=== PATIENT | male | born 1935 | race Caucasian/White ===

== ENCOUNTER 2017-01-31 18:21 | Inpatient (IN) | payer OTHER, MEDICARE ==
[~2017-01-31] VITALS: Ht 167.6 cm; Wt 96.0 kg
[~2017-01-31 18:21] MED LIST: DOCU1CAP39 PO; FURO1TAB93 PO; KCL20 PO; LEVA750T PO; LOSA25TA31 PO; METF-324 PO; OXYC5 PO; PRAV10 PO; PRED10PA PO; Z.0.OXYGEN INH
[2017-01-31 18:28] VITALS: BP 155/72; PULSE 75; RESP 20; O2SAT 80
[2017-01-31] MEDS ORDERED: FUROSEMIDE 40 MG/4 ML VIAL IV PUSH ONE (19:15)
--- NOTE | 2017-01-31 19:15 | RADRPT ---
EXAM DATE/TIME: 01/31/2017 19:08 [facility] COMPARISON: No previous studies available for comparison. INDICATIONS : Short of breath. MEDICAL HISTORY : Chronic obstructive pulmonary disease. Hypertension SURGICAL HISTORY : None. ENCOUNTER: Initial ACUITY: >1 year PAIN SCORE: 0/10 LOCATION: Bilateral chest FINDINGS: Mild consolidation seen in both lung bases. There is a small pleural effusion on the left. No pneumot horax seen. Heart size stable, upper limits of normal. CONCLUSION: Bibasilar consolidation and a small left pleural effusion. Raymon Meraz MD on January 31, 2017 at 19:13 Board Certified Radiologist. This report was verified electronically.
--- NOTE | 2017-01-31 19:16 | PD ---
HPI Chief Complaint: Respiratory Distress Time Seen by Provider: 19:16 Travel History International Travel<30 days: No Contact w/Intl Traveler<30days: No Traveled to known affect area: No History of Present Illness HPI 81 year old male with history of CHF, HTN, COPD, Diabetes presents to the ED for evaluation of worsening shortness of breath. Pt states this has been evolving over the last 3-4 days, but this morning when he woke up, his oxygen saturation was 50%. He is on 3LNC at home. He states he did not come into the ED at that time because he felt his oxygen would "catch up." He states he has been able to do nothing today without significant shortness of breath. EVAC reports O2 of 80% when they arrived at his house. Pt reports no recent illness, fever, or chills. Intermittent pain across his chest, but no pain currently. Denies any nausea or vomiting. No other symptoms to report at this time. 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 ) Substance Use: No Allergies-Medications (Allergen,Severity, Reaction): Coded Allergies: No Known Allergies (Verified , 01/21/15) Reported Meds & Prescriptions Reported Meds & Active Scripts Active Reported Hydrochlorothiazide 12.5 Mg Tab 12.5 Mg PO DAILY Duoneb (Ipratropium-Albuterol Neb) 0.5-2.5 Mg/3 Ml Neb 1 Nebule INH Q8HR NEB PRN Docusate Sodium 100 Mg Cap 100 Mg PO BID Symbicort Inh (Budesonide/Formoterol Fumarate) 160-4.5 Mcg/Act Aero 2 Puff INH Q12HR Terazosin (Terazosin HCl) 10 Mg Cap 10 Mg PO DAILY Aspirin EC (Aspirin) 81 Mg Tabdr 81 Mg PO DAILY Metformin (Metformin HCl) 500 Mg Tab 500 Mg PO BIDPC With meals Atorvastatin (Atorvastatin Calcium) 10 Mg Tab 10 Mg PO DAILY Review of Systems Except as stated in HPI: all other systems reviewed are Neg Physical Exam Narrative GENERAL: Well-nourished elderly male patient, sitting up in bed, in mild distress, SKIN: Focused skin assessment warm/dry. HEAD: Atraumatic. Normocephalic. EYES: Pupils equal and round. No scleral icterus. No injection or drainage. ENT: No nasal bleeding or discharge. Mucous membranes pink and moist. NECK: Trachea midline. No JVD. CARDIOVASCULAR: Regular rate and rhythm. No murmur appreciated. RESPIRATORY: Mild accessory muscle use. Diminished to auscultation. Breath sounds equal bilaterally. GASTROINTESTINAL: Abdomen rotund, soft, normal active bowel sounds hepatic and splenic margins not palpable. MUSCULOSKELETAL: No obvious deformities. No clubbing. No cyanosis. 2+ bilateral lower extremity edema. NEUROLOGICAL: Awake and alert. No obvious cranial nerve deficits. Motor grossly within normal limits. Normal speech. PSYCHIATRIC: Appropriate mood and affect; insight and judgment normal. Data Data Last Documented VS Vital Signs Date Time Temp Pulse Resp B/P Pulse Ox O2 Delivery O2 Flow Rate FiO2 01/31/17 19:09 100 Non-Rebreather 15 01/31/17 18:28 75 20 155/72 Orders Complete Blood Count With Diff (01/31/17 18:52) Basic Metabolic Panel (Bmp) (01/31/17 18:52) B-Type Natriuretic Peptide (01/31/17 18:52) Act Partial Throm Time (Ptt) (01/31/17 18:52) Prothrombin Time / Inr (Pt) (01/31/17 18:52) Ckmb (Isoenzyme) Profile (01/31/17 18:52) Troponin I (01/31/17 18:52) Urinalysis - C+S If Indicated (01/31/17 18:52) Influenzae A/B Antigen (01/31/17 18:52) Iv Access Insert/Monitor (01/31/17 18:52) Electrocardiogram (01/31/17 18:52) Ecg Monitoring (01/31/17 18:52) Oximetry (01/31/17 18:52) Oxygen Administration (01/31/17 18:52) Chest, Single Ap (01/31/17 18:52) Sodium Chloride 0.9% Flush (Ns Flush) (01/31/17 19:00) Albuterol-Ipratropium Neb (Duoneb Neb) (01/31/17 19:00) Furosemide Inj (Lasix Inj) (01/31/17 19:15) Vancomycin Inj (Vancomycin Inj) (01/31/17 20:45) Azithromycin Inj (Zithromax Inj) (01/31/17 20:45) Blood Culture (01/31/17 20:38) Arterial Blood Gas (Abg) (01/31/17 ) Admit Order (Ed Use Only) (01/31/17 21:04) Labs Laboratory Tests Test 01/31/17 01/31/17 19:10 20:20 White Blood Count 6.9 TH/MM3 Red Blood Count 3.28 MIL/MM3 Hemoglobin 10.0 GM/DL Hematocrit 31.3 % Mean Corpuscular Volume 95.4 FL Mean Corpuscular Hemoglobin 30.6 PG Mean Corpuscular Hemoglobin 32.0 % Concent Red Cell Distribution Width 15.9 % Platelet Count 166 TH/MM3 Mean Platelet Volume 8.3 FL Neutrophils (%) (Auto) 64.9 % Lymphocytes (%) (Auto) 18.2 % Monocytes (%) (Auto) 12.7 % Eosinophils (%) (Auto) 3.5 % Basophils (%) (Auto) 0.7 % Neutrophils # (Auto) 4.5 TH/MM3 Lymphocytes # (Auto) 1.2 TH/MM3 Monocytes # (Auto) 0.9 TH/MM3 Eosinophils # (Auto) 0.2 TH/MM3 Basophils # (Auto) 0.0 TH/MM3 CBC Comment DIFF FINAL Differential Comment Prothrombin Time 11.5 SEC Prothromb Time International 1.0 RATIO Ratio Activated Partial 27.5 SEC Thromboplast Time Sodium Level 142 MEQ/L Potassium Level 4.4 MEQ/L Chloride Level 97 MEQ/L Carbon Dioxide Level 43.8 MEQ/L Anion Gap 1 MEQ/L Blood Urea Nitrogen 17 MG/DL Creatinine 0.74 MG/DL Estimat Glomerular Filtration 102 ML/MIN Rate Random Glucose 121 MG/DL Calcium Level 8.4 MG/DL Total Creatine Kinase 59 U/L Troponin I LESS THAN 0.02 NG/ML B-Type Natriuretic Peptide 165 PG/ML Urine Color LIGHT-YELLOW Urine Turbidity CLEAR Urine pH 5.0 Urine Specific [place] 1.008 Urine Protein NEG mg/dL Urine Glucose (UA) NEG mg/dL Urine Ketones NEG mg/dL Urine Occult Blood NEG Urine Nitrite NEG Urine Bilirubin NEG Urine Urobilinogen LESS THAN 2.0 MG/DL Urine Leukocyte Esterase NEG Urine RBC LESS THAN 1 /hpf Urine WBC LESS THAN 1 /hpf Urine Squamous Epithelial <1 /hpf Cells Urine Bacteria RARE /hpf Urine Mucus FEW /lpf Microscopic Urinalysis Comment CULT NOT INDICATED MDM Medical Decision Making Medical Screen Exam Complete: Yes Emergency Medical Condition: Yes Medical Record Reviewed: Yes Differential Diagnosis COPD exacerbation v pneumonia v chf v acs v PE Narrative Course 81-year-old male presents to emergency department for evaluation of hypoxia, shortness of breath. Patient has history of COPD and CHF. Pt appears in mild distress. Patient is 79% here on 4 L nasal cannula. He is placed on 100% nonrebreather and oxygen saturation increases to 94%. He has 2+ BLE edema. I discussed the pt with my attending physician Dr. Kennedy. He has reviewed the xr prior to read and recommends lasix. Laboratory Tests Test 01/31/17 01/31/17 19:10 20:20 White Blood Count 6.9 TH/MM3 Red Blood Count 3.28 MIL/MM3 Hemoglobin 10.0 GM/DL Hematocrit 31.3 % Mean Corpuscular Volume 95.4 FL Mean Corpuscular Hemoglobin 30.6 PG Mean Corpuscular Hemoglobin 32.0 % Concent Red Cell Distribution Width 15.9 % Platelet Count 166 TH/MM3 Mean Platelet Volume 8.3 FL Neutrophils (%) (Auto) 64.9 % Lymphocytes (%) (Auto) 18.2 % Monocytes (%) (Auto) 12.7 % Eosinophils (%) (Auto) 3.5 % Basophils (%) (Auto) 0.7 % Neutrophils # (Auto) 4.5 TH/MM3 Lymphocytes # (Auto) 1.2 TH/MM3 Monocytes # (Auto) 0.9 TH/MM3 Eosinophils # (Auto) 0.2 TH/MM3 Basophils # (Auto) 0.0 TH/MM3 CBC Comment DIFF FINAL Differential Comment Prothrombin Time 11.5 SEC Prothromb Time International 1.0 RATIO Ratio Activated Partial 27.5 SEC Thromboplast Time Sodium Level 142 MEQ/L Potassium Level 4.4 MEQ/L Chloride Level 97 MEQ/L Carbon Dioxide Level 43.8 MEQ/L Anion Gap 1 MEQ/L Blood Urea Nitrogen 17 MG/DL Creatinine 0.74 MG/DL Estimat Glomerular Filtration 102 ML/MIN Rate Random Glucose 121 MG/DL Calcium Level 8.4 MG/DL Total Creatine Kinase 59 U/L Troponin I LESS THAN 0.02 NG/ML B-Type Natriuretic Peptide 165 PG/ML Urine Color LIGHT-YELLOW Urine Turbidity CLEAR Urine pH 5.0 Urine Specific [place] 1.008 Urine Protein NEG mg/dL Urine Glucose (UA) NEG mg/dL Urine Ketones NEG mg/dL Urine Occult Blood NEG Urine Nitrite NEG Urine Bilirubin NEG Urine Urobilinogen LESS THAN 2.0 MG/DL Urine Leukocyte Esterase NEG Urine RBC LESS THAN 1 /hpf Urine WBC LESS THAN 1 /hpf Urine Squamous Epithelial <1 /hpf Cells Urine Bacteria RARE /hpf Urine Mucus FEW /lpf Microscopic Urinalysis Comment CULT NOT INDICATED . Last Impressions Chest X-Ray 01/31/171851 Signed Impressions: Service Date/Time: Tuesday, January 31, 2017 19:08 - CONCLUSION: Bibasilar consolidation and a small left pleural effusion. Raymon Meraz MD Pt is given IV rocephin and azithromycin. He verbalizes feeling much better after oxygen administration. [address] Carmichael. He request ABG and then to call him back prior to admission. 2099 I am informed by my attending that pt can be admitted at this time. Diagnosis Primary Impression: Hypoxia Additional Impressions: Pneumonia Qualified Code: J18.9 - Pneumonia of both lower lobes due to infectious organism COPD exacerbation Admitting Information Admitting Physician Requests: Admit Condition: Stable Alisha Goss Jan 31, 2017 19:16
[2017-01-31] MEDS: SODIUM CHLORIDE 0.9% FLUSH 10 ML FLUSH IVF PRN (19:39)
[2017-01-31 20:11] LABS: AUTOMATED NEUTROPHIL # 4.5 TH/MM3 (1.8-7.7); BASOPHIL % 0.7 % (0.0-2.0); EOSINOPHIL # 0.2 TH/MM3 (0-0.4); EOSINOPHIL % 3.5 % (0.0-4.0); HEMATOCRIT 31.3 % (39.0-51.0); HEMO FLAGS DIFF FINAL; LYMPH % 18.2 % (9.0-44.0); LYMPHOCYTE # 1.2 TH/MM3 (1.0-4.8); MEAN CELL VOLUME 95.4 FL (80.0-100.0); MEAN CORPUSCULAR HEMOGLOBIN 30.6 PG (27.0-34.0); MONO % 12.7 % (0.0-8.0); NEUT % 64.9 % (16.0-70.0); PLATELET COUNT 166 TH/MM3 (150-450); RED BLOOD COUNT 3.28 MIL/MM3 (4.50-5.90); RED CELL DISTRIBUTION WIDTH 15.9 % (11.6-17.2); WHITE BLOOD COUNT 6.9 TH/MM3 (4.0-11.0)
[2017-01-31 20:26] LABS: ANION GAP 1 MEQ/L (5-15); BICARBONATE 43.8 MEQ/L (21.0-32.0); BLOOD UREA NITROGEN 17 MG/DL (7-18); CHLORIDE 97 MEQ/L (98-107); GLOMERULAR FILTRATION RATE 102 ML/MIN (>89); POTASSIUM 4.4 MEQ/L (3.5-5.1); SODIUM (NA) 142 MEQ/L (136-145)
[2017-01-31 20:30] VITALS: O2SAT 91
[2017-01-31 20:30] LABS: APTT (PATIENT) 27.5 SEC (24.3-30.1); PROTHROMBIN TIME - PATIENT 11.5 SEC (9.8-11.6)
[2017-01-31] MEDS ORDERED: AZITHROMYCIN INJ 500 MG in SODIUM CHLOR 0.9% 250 ML INJ 250 ML IV ONE (20:45)
[2017-01-31] MEDS ORDERED: VANCOMYCIN INJ 1,000 MG in SODIUM CHLOR 0.9% 250 ML INJ 250 ML IV ONE (20:45)
[2017-01-31 20:55] LABS: BACTERIA, URINE RARE /hpf; BLOOD, URINE NEG (NEG); COMMENT (UR) CULT NOT INDICATED; CULTURE IF INDICATED CULT NOT INDICATED; GLUCOSE,URINE NEG (NEG); KETONE, URINE NEG (NEG); MUCUS URINE FEW /lpf (OCC); NITRITE,URINE NEG (NEG); SQUAMOUS EPITHELIAL CELL URINE <1 /hpf (0-5); URINE COLOR LIGHT-YELLOW (YELLW/STRAW)
[2017-01-31 20:58] LABS: CREATINE KINASE 59 U/L (39-308)
[2017-01-31 21:00] VITALS: O2SAT 96
[2017-01-31] MEDS ORDERED: IPRASOL INH (21:09)
[2017-01-31] MEDS ORDERED: HYDR12.56 PO (21:09)
[2017-01-31] MEDS ORDERED: DOCU100C PO (21:09)
[2017-01-31] MEDS ORDERED: ASPI81TA11 PO (21:09)
[2017-01-31] MEDS ORDERED: TERA10CA3 PO (21:09)
[2017-01-31] MEDS ORDERED: SYMB160A INH (21:09)
[2017-01-31] MEDS ORDERED: ATOR10TA15 PO (21:09)
[2017-01-31] MEDS ORDERED: METF500T PO (21:09)
[2017-01-31] MEDS: RESP: ALBUTEROL 2.5 MG/IPRATROPIUM 0.5 MG NEB (SCH) INH (21:27)
[2017-01-31 22:29] LABS: BLOOD GAS BASE EXCESS 17.4 mmol/L (-2-2); BLOOD GAS HCO3 45 mmol/L (22-26); BLOOD GAS METHEMOGLOBIN 0.7 % (0-2); BLOOD GAS O2 HGB SATURATION 96 % (90-100); BLOOD GAS OXYGEN CONTENT 13.6 Vol % (12.0-20.0); BLOOD GAS PCO2 95 mmHg (38-42); BLOOD GAS PO2 131 mmHG (61-120); BLOOD GAS TOTAL HGB 9.9 G/DL (12.0-16.0); TEMP CORR TO 98.6
[2017-01-31 22:30] LABS: CRITICAL VALUE YES; DRAW SITE RT RADIAL; LITER FLOW 12 L/M; NUMBER OF ARTERIAL PUNCTURES 1; STAT NO; ULNAR PULSE PRESENT
[2017-01-31 23:09] VITALS: BP 155/68; RESP 20; O2SAT 90
[2017-01-31 23:15] VITALS: O2SAT 99
[2017-01-31] MEDS ORDERED: RESP: ALBUTEROL 2.5 MG/3 ML NEB (PRN) INH (23:15)
[2017-02-01] VITALS (28 sets, daily range): BP systolic 12–139; BP diastolic 55–82; PULSE 68–100; RESP 18–22; TEMP 97.6–98.8; O2SAT 86–99
[2017-02-01] MEDS ORDERED: LEVOFLOXACIN 750 MG PREMIX INJ 150 ML IV SCH
--- NOTE | 2017-02-01 00:05 | HHI.HP ---
[facility] Gabo Puente MD Admission Diagnosis HYPOXIA;; COPD EXACERBATION; BIBASILAR CONSOLIDATION Diagnoses: Chief Complaint: Short of breath and low O2 sat Travel History International Travel<30 Days: No Contact w/Intl Traveler <30 Da: No Traveled to Known Affected Are: No History of Present Illness 81 years old male with history of hypertension COPD CHF diabetes mellitus presented to the ED with worsening short of breath and hypoxia, patient stated this has been going on for the last 3-4 days, but today it was extremely worst his oxygenation was checked at home was 50% he is usually on 3 L nasal cannula. A vacuum ports O2 was 80% when they arrived to the house. Patient denied fever or chills, he complained of pain across this chest which was intermittent , dull in nature. The pain has relatively resolved by the time of the encounter , patient denied nausea or vomiting, abdominal pain. 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 Next surgery Allergies: Coded Allergies: No Known Allergies (Verified , 01/21/15) Family History Father has coronary artery disease Social History Patient quit smoking 30 years ago, no alcohol or illicit drug abuse Physical Exam Vital Signs Vital Signs Date Time Temp Pulse Resp B/P Pulse Ox O2 Delivery O2 Flow Rate FiO2 01/31/17 23:15 99 40 01/31/17 23:09 20 155/68 90 Venturi Mask 50 01/31/17 21:00 96 Partial Rebreather 12.00 01/31/17 20:30 91 Venturi Mask 50 01/31/17 19:09 100 Non-Rebreather 15 01/31/17 18:37 100 Non-Rebreather 10 01/31/17 18:28 75 20 155/72 80 Physical Exam GENERAL: This is a well-nourished, well-developed patient, in moderate respiratory distress on Ventimask SKIN: No rashes, warm and dry HEAD: Atraumatic. Normocephalic. EYES: Pupils equal round and reactive. Extraocular motions intact. No scleral icterus. ENT: Nose without bleeding, or drainage, Airway patent. NECK: Trachea midline. Supple CARDIOVASCULAR: Regular rate and rhythm without murmurs, gallops, or rubs. RESPIRATORY: Decreased breath sounds, positive bilateral wheezing GASTROINTESTINAL: Abdomen soft, non-tender, nondistended. Positive bowel sounds MUSCULOSKELETAL: Extremities without clubbing, cyanosis, or edema. Pedal pulses appreciated NEUROLOGICAL: Awake and alert. Moves all extremity. Normal speech.no focal neurological deficit Laboratory Laboratory Tests Test 01/31/17 01/31/17 01/31/17 19:10 20:20 22:08 White Blood Count 6.9 Red Blood Count 3.28 Hemoglobin 10.0 Hematocrit 31.3 Mean Corpuscular Volume 95.4 Mean Corpuscular Hemoglobin 30.6 Mean Corpuscular Hemoglobin 32.0 Concent Red Cell Distribution Width 15.9 Platelet Count 166 Mean Platelet Volume 8.3 Neutrophils (%) (Auto) 64.9 Lymphocytes (%) (Auto) 18.2 Monocytes (%) (Auto) 12.7 Eosinophils (%) (Auto) 3.5 Basophils (%) (Auto) 0.7 Neutrophils # (Auto) 4.5 Lymphocytes # (Auto) 1.2 Monocytes # (Auto) 0.9 Eosinophils # (Auto) 0.2 Basophils # (Auto) 0.0 CBC Comment DIFF FINAL Differential Comment Prothrombin Time 11.5 Prothromb Time International 1.0 Ratio Activated Partial 27.5 Thromboplast Time Sodium Level 142 Potassium Level 4.4 Chloride Level 97 Carbon Dioxide Level 43.8 Anion Gap 1 Blood Urea Nitrogen 17 Creatinine 0.74 Estimat Glomerular Filtration 102 Rate Random Glucose 121 Calcium Level 8.4 Total Creatine Kinase 59 Troponin I LESS THAN 0.02 B-Type Natriuretic Peptide 165 Urine Color LIGHT-YELLOW Urine Turbidity CLEAR Urine pH 5.0 Urine Specific [place] 1.008 Urine Protein NEG Urine Glucose (UA) NEG Urine Ketones NEG Urine Occult Blood NEG Urine Nitrite NEG Urine Bilirubin NEG Urine Urobilinogen LESS THAN 2.0 Urine Leukocyte Esterase NEG Urine RBC LESS THAN 1 Urine WBC LESS THAN 1 Urine Squamous Epithelial <1 Cells Urine Bacteria RARE Urine Mucus FEW Microscopic Urinalysis Comment CULT NOT INDICATED Blood Gas Puncture Site RT RADIAL Blood Gas Patient Temperature 98.6 Blood Gas HCO3 45 Blood Gas Base Excess 17.4 Blood Gas Oxygen Saturation 96 Arterial Blood pH 7.29 Arterial Blood Partial 95 Pressure CO2 Arterial Blood Partial 131 Pressure O2 Arterial Blood Oxygen Content 13.6 Arterial Blood 2.0 Carboxyhemoglobin Arterial Blood Methemoglobin 0.7 Blood Gas Hemoglobin 9.9 Oxygen Delivery Device Partial Rebreather Blood Gas Liter Flow 12 Date/Time Procedure Status Source Growth 01/31/17 21:45 Aerobic Blood Culture Received Blood Peripheral Pending 01/31/17 21:45 Anaerobic Blood Culture Received Blood Peripheral Pending 01/31/17 20:20 Influenza Types A,B Antigen (MYNOR) - Final Complete Nasal Washing NEGATIVE FOR FLU A AND B ANTIGEN.... Result Diagram: 01/31/17190901/31/[address] Angiography 02/01/17 0000 Signed Impressions: Service Date/Time: Wednesday, February 01, 2017 02:05 - CONCLUSION: No pulmonary arterial defects are identified. No evidence of pulmonary embolism. Stable areas of pleural-based scarring and minimal atelectasis bilaterally . Colby Britton MD Chest X-Ray 01/31/17 185 Signed Impressions: Service Date/Time: Tuesday, January 31, 2017 19:08 - CONCLUSION: Bibasilar consolidation and a small left pleural effusion. Raymon Meraz MD Assessment and Plan Assessment and Plan 81 years old male with -Acute hypercapnic respiratory failure rule out underlying PE versus only COPD exacerbation Patient Wells criteria is 4.5 moderate probability, however due to sedentary life ,CTA scan ordered which ruled out PE 02, ABG ordered and reviewed me showing PCO2 95%, above his usual baseline which is around 60% Ordered BiPAP, repeated ABG after 1 hour show CO2 of 85 DuoNeb, monitor closely if not improving we may need intubation Solu-Medrol iv -COPD exacerbation Management as above, Levaquin for exacerbation -Bilateral basilar consolidation on chest x-ray this is not new from previous chest x-ray a year ago Patient will be on Levaquin -Hypertension, hyperlipidemia, diabetes mellitus: Continue home meds, Accu-Chek with insulin sliding scale, hold metformin -DVT prophylaxis with SCD Critical care time 60 minutes Discussed Condition With Patient in ED physician, and EDPA Physician Certification 2 Midnight Certification Type: Admission for Inpatient Services Order for Inpatient Services The services are ordered in accordance with Medicare regulations or non- Medicare payer requirements, as applicable. In the case of services not specified as inpatient-only, they are appropriately provided as inpatient services in accordance with the 2-midnight benchmark. Estimated LOS (days): 2 days is the estimated time the patient will need to remain in the hospital, assuming treatment plan goals are met and no additional complications. Post-Hospital Plan: Not yet determined Cedric Carmichael MD Feb 01, 2017 00:05
[2017-02-01 00:45] LABS: BLOOD GAS HCO3 45 mmol/L (22-26); BLOOD GAS METHEMOGLOBIN 0.6 % (0-2); BLOOD GAS O2 HGB SATURATION 95 % (90-100); BLOOD GAS OXYGEN CONTENT 12.7 Vol % (12.0-20.0); BLOOD GAS PCO2 89 mmHg (38-42); BLOOD GAS PO2 96 mmHG (61-120); BLOOD GAS TOTAL HGB 9.4 G/DL (12.0-16.0); CRITICAL VALUE YES; OXYGEN DEVICE BiPAP; TEMP CORR TO 98.6
[2017-02-01 00:46] LABS: FIO2 50 %
[2017-02-01 00:47] LABS: DRAW SITE RT RADIAL; NUMBER OF ARTERIAL PUNCTURES 1; STAT NO; ULNAR PULSE PRESENT; VENT SETTINGS IPAP10EPAP5
[2017-02-01] MEDS: methylPREDNISolone SOD SUCC 125 MG/2 ML VIAL IVP SCH ×5 (00:51→23:58)
[2017-02-01] MEDS ORDERED: IOHEXOL 350 MG/ML 10 ML VIAL (for RAD DIAG) IV ONE (02:15)
--- NOTE | 2017-02-01 02:25 | RADRPT ---
EXAM DATE/TIME: 02/01/2017 02:05 [facility] COMPARISON: CT PULMONARY ANGIOGRAM, May 15, 2016, 17:12. INDICATIONS : Hypoxia. IV CONTRAST: 75 cc Omnipaque 350 (iohexol) IV RADIATION DOSE: 23.38 CTDIvol (mGy) MEDICAL HISTORY : Cardiovascular disease. Hypertension. Chronic obstructive pulmonary disease.Diabetes SURGICAL HISTORY : None. ENCOUNTER: Initial ACUITY: 1 day PAIN SCALE: 0/10 LOCATION: Bilateral chest TECHNIQUE: Volumetric scanning of the chest was performed using a pulmonary embolism protocol MIP images were re constructed. Using automated exposure control and adjustment of the mA and/or kV according to patien t size, radiation dose was kept as low as reasonably achievable to obtain optimal diagnostic quality images. FINDINGS: PULMONARY ARTERIES: No filling defects are seen in the pulmonary arteries through the segmental level. LUNGS: There is no pneumothorax . No concerning pulmonary nodule is visualized. Peripheral areas of consoli dation including the right middle lobe and both lung bases PLEURAE: Mild bilateral stable pleural thickening and small pleural effusion. MEDIASTINUM: There is good visualization of the great vessels of the middle mediastinum. Stable mediastinal or hil ar adenopathy/mass. Coronary atherosclerotic disease MUSCULOSKELETAL: Within normal limits for patient age. MISCELLANEOUS: The visualized upper abdominal organs demonstrate no acute abnormality. CONCLUSION: No pulmonary arterial defects are identified. No evidence of pulmonary embolism. Stable areas of ple ural-based scarring and minimal atelectasis bilaterally . Colby Britton MD on February 01, 2017 at 2:22 Board Certified Radiologist. This report was verified electronically.
[2017-02-01] MEDS: RESP: ALBUTEROL 2.5 MG/IPRATROPIUM 0.5 MG NEB (SCH) INH ×2 (03:09→08:48)
[2017-02-01] MEDS: HEPARIN SODIUM - SQ 10,000 UNITS/ML VIAL SQ SCH ×3 (06:15→21:28)
[2017-02-01] MEDS: HYDROCHLOROTHIAZIDE 12.5 MG CAP PO SCH (08:14)
[2017-02-01] MEDS: ASPIRIN EC 81 MG TABEC PO SCH (08:14)
[2017-02-01] MEDS: TERAZOSIN HCL 5 MG CAP PO SCH (08:14)
[2017-02-01] MEDS: ATORVASTATIN 10 MG TAB PO SCH (08:14)
[2017-02-01 08:44] LABS: AUTOMATED NEUTROPHIL # 4.6 TH/MM3 (1.8-7.7); BASOPHIL % 0.5 % (0.0-2.0); EOSINOPHIL % 0.1 % (0.0-4.0); HEMATOCRIT 28.6 % (39.0-51.0); HEMO FLAGS DIFF FINAL; LYMPH % 7.1 % (9.0-44.0); LYMPHOCYTE # 0.4 TH/MM3 (1.0-4.8); MEAN CELL VOLUME 94.9 FL (80.0-100.0); MEAN CORPUSCULAR HEMOGLOBIN 31.4 PG (27.0-34.0); MEAN CORPUSCULAR HGB CONC 33.1 % (32.0-36.0); NEUT % 91.3 % (16.0-70.0); PLATELET COUNT 163 TH/MM3 (150-450); RED BLOOD COUNT 3.01 MIL/MM3 (4.50-5.90); RED CELL DISTRIBUTION WIDTH 15.8 % (11.6-17.2); WHITE BLOOD COUNT 5.1 TH/MM3 (4.0-11.0)
[2017-02-01 09:19] LABS: BICARBONATE 44.1 MEQ/L (21.0-32.0); POTASSIUM 4.1 MEQ/L (3.5-5.1)
[2017-02-01 09:51] LABS: BLOOD GAS BASE EXCESS 15.9 mmol/L (-2-2); BLOOD GAS CARBOXYHEMOGLOBIN 2.2 % (0-4); BLOOD GAS HCO3 41 mmol/L (22-26); BLOOD GAS METHEMOGLOBIN 1.1 % (0-2); BLOOD GAS O2 HGB SATURATION 77 % (90-100); BLOOD GAS OXYGEN CONTENT 10.5 Vol % (12.0-20.0); BLOOD GAS PCO2 65 mmHg (38-42); BLOOD GAS PO2 43 mmHg (61-120); BLOOD GAS TOTAL HGB 9.7 G/DL (12.0-16.0); CRITICAL VALUE YES; DRAW SITE RT RADIAL; LITER FLOW 6 L/M; NUMBER OF ARTERIAL PUNCTURES 1; OXYGEN DEVICE NASAL CANNULA; TEMP CORR TO 98.6; ULNAR PULSE PRESENT
[2017-02-01 09:52] LABS: STAT NO
[2017-02-01] MEDS: BUDESONIDE-FORMOTEROL 160/4.5 MCG INHALER INH SCH ×2 (14:20→21:25)
[2017-02-01] MEDS: RESP: ALBUTEROL 2.5 MG/IPRATROPIUM 0.5 MG NEB (SCH) NEB ×2 (15:19→20:43)
[2017-02-01] MEDS ORDERED: GLUCAGON 1 MG/ML VIAL OTHER PRN (15:30)
[2017-02-01] MEDS ORDERED: DEXTROSE 50% IN WATER 50 ML VIAL(D50) IV PRN (15:30)
[2017-02-01] MEDS: INSULIN ASPART SUPPLEMENTAL SCALE SQ SCH ×2 (16:00→21:00)
[2017-02-01] MEDS: LEVOFLOXACIN 750 MG TAB PO SCH (17:09)
[2017-02-01] MEDS: INSULIN DETEMIR 100 UNITS/ML VIAL SQ SCH (21:26)
--- NOTE | 2017-02-01 22:00 | EKG ---
Date Performed: 01/31/2017 Time Performed: 19:13:26 PTAGE: 81 years EKG: Sinus rhythm POSSIBLE LEFT ATRIAL ENLARGEMENT Since previous tracing, no significant change noted BORDERLINE ECG PREVIOUS TRACING : 05/15/2016 10.32 DOCTOR: Shawna Cheney Interpretating Date/Time 02/01/2017 21:57:20
[2017-02-02] VITALS (26 sets, daily range): BP systolic 114–127; BP diastolic 58–67; PULSE 68–106; RESP 17–20; TEMP 97.8–98.8; O2SAT 85–96
[2017-02-02] MEDS: methylPREDNISolone SOD SUCC 125 MG/2 ML VIAL IVP SCH ×3 (06:07→17:32)
[2017-02-02] MEDS: HEPARIN SODIUM - SQ 10,000 UNITS/ML VIAL SQ SCH ×3 (06:08→22:17)
[2017-02-02] MEDS: INSULIN ASPART SUPPLEMENTAL SCALE SQ SCH ×4 (06:20→22:14)
[2017-02-02] MEDS: RESP: ALBUTEROL 2.5 MG/IPRATROPIUM 0.5 MG NEB (SCH) NEB ×4 (08:07→19:52)
[2017-02-02] MEDS: TERAZOSIN HCL 5 MG CAP PO SCH (09:38)
[2017-02-02] MEDS: HYDROCHLOROTHIAZIDE 12.5 MG CAP PO SCH (09:38)
[2017-02-02] MEDS: ATORVASTATIN 10 MG TAB PO SCH (09:38)
[2017-02-02] MEDS: BUDESONIDE-FORMOTEROL 160/4.5 MCG INHALER INH SCH ×2 (09:38→22:17)
[2017-02-02] MEDS: ASPIRIN EC 81 MG TABEC PO SCH (09:38)
--- NOTE | 2017-02-02 12:36 | HHI.PR ---
Subjective Remarks Follow up for mixed respiratory failure. Mr. Vang is doing well. His breathing is better. He denies any acute respiratory distress. He is able to tolerate food well and maintains good appetite. Currently on supplemental O2 7L. Objective Vitals Vital Signs Date Time Temp Pulse Resp B/P Pulse Ox O2 Delivery O2 Flow Rate FiO2 02/02/17 12:00 80 02/02/17 11:00 86 02/02/17 10:00 84 02/02/17 09:00 102 02/02/17 08:11 91 Nasal Cannula 5.00 02/02/17 08:00 97.9 88 19 114/60 85 02/02/17 08:00 80 02/02/17 07:49 Nasal Cannula 5.00 02/02/17 07:00 68 02/02/17 06:02 69 02/02/17 05:05 69 02/02/17 04:08 96 50 02/02/17 04:00 69 02/02/17 03:00 79 02/02/17 03:00 97.8 79 17 125/67 91 02/02/17 02:06 69 02/02/17 01:00 74 02/02/17 00:00 80 02/02/17 00:00 94 50 02/01/17 23:00 75 02/01/17 23:00 97.8 75 18 116/57 92 02/01/17 22:00 82 02/01/17 21:00 80 02/01/17 20:46 93 Nasal Cannula 5.00 02/01/17 20:00 86 02/01/17 19:00 Nasal Cannula 5.00 92 02/01/17 19:00 84 02/01/17 19:00 97.8 84 22 126/55 92 02/01/17 18:01 92 02/01/17 17:00 86 02/01/17 16:00 86 02/01/17 15:01 80 02/01/17 15:01 97.6 84 22 133/64 97 02/01/17 14:00 96 02/01/17 13:00 100 I/O 02/01/17 02/01/17 02/01/17 02/02/17 02/02/17 02/02/17 07:00 15:00 23:00 07:00 15:00 23:00 Intake Total 240 ml 840 ml 240 ml Output Total 350 ml 750 ml 1100 ml Balance -110 ml 90 ml -860 ml Intake Oral 240 ml 840 ml 240 ml Output Urine Total 350 ml 750 ml 1100 ml Stool Total 0 ml # Voids 4 # Bowel Movements 0 Result Diagram: 02/01/17 0813 02/01/17 [address] Angiography 02/01/17 0000 Signed Impressions: Service Date/Time: Wednesday, February 01, 2017 02:05 - CONCLUSION: No pulmonary arterial defects are identified. No evidence of pulmonary embolism. Stable areas of pleural-based scarring and minimal atelectasis bilaterally . Colby Britton MD Chest X-Ray 01/31/17 185 Signed Impressions: Service Date/Time: Tuesday, January 31, 2017 19:08 - CONCLUSION: Bibasilar consolidation and a small left pleural effusion. Raymon Meraz MD Objective Remarks GENERAL: AOX3, NAD. SKIN: Warm and dry. HEAD: Normocephalic. EYES: No scleral icterus. No injection or drainage. NECK: Supple, trachea midline. No JVD or lymphadenopathy. CARDIOVASCULAR: Regular rate and rhythm without murmurs, gallops, or rubs. RESPIRATORY: Moderate air entry. No wheezing or crackles noted. GASTROINTESTINAL: Abdomen soft, non-tender, nondistended. MUSCULOSKELETAL: No cyanosis, or edema. BACK: Nontender without obvious deformity. No CVA tenderness. Procedures None. A/P Problem List: (1) Acute respiratory failure with hypoxia and hypercapnia ICD Code: J96.01 Status: Acute (2) COPD exacerbation ICD Code: J44.1 Status: Acute (3) Diabetes mellitus ICD Code: E11.9 Status: Chronic Assessment and Plan Mr. Vang is a 81 year old male with history of CHF, HTN, COPD, Diabetes presented to the ED on 01/31/2017 for evaluation of worsening shortness of breath that started 3-4 days prior to this admission. On the morning of admission, his O2 sat was 50%. On admission, his ABG was 7.32/89/96 on room air. His pCO2 improved to 65 with BiPAP. However, patient continued to require higher than his usual amount of O2 via nasal cannula. CXR showed bibasilar consolidation and CTA did not show any PE. - Acute respiratory failure with hypercarbia and hypoxia. - Patient uses 3-4 L of O2 at home. - Currently requiring over 6L of O2 via NC. - Hypercarbia improved with BiPAP. - Continue scheduled DuoNeb, Symbicort. - Continue Levaquin 750mg Qday as well as Solu-medrol 60mg IV Q6hrs. - Continue effort to wean down O2 requirements to maintain O2 sat > 88%. - Will consult Patient's Adjunct Philosophy Faculty Dr. Woods. - Diabetes mellitus - Continue Levemir 5 units QHS and Sliding scale insulin. - Hyperlipidemia - Continue Lipitor 10mg QHS. - Hypertension - Continue HCTZ 12.5mg Qday. Full code. Heparin SQ Judy Rashid DO Feb 02, 2017 12:36
[2017-02-02] MEDS: LEVOFLOXACIN 750 MG TAB PO SCH (16:04)
--- NOTE | 2017-02-02 18:14 | MB ---
cc: CHUCK WOODS M.D. DATE OF CONSULTATION 02/02/17 REASON FOR CONSULTATION COPD exacerbation and respiratory failure. HISTORY OF PRESENT ILLNESS Mr. Vang is a 81-year-old male with known history of severe COPD, chronic respiratory failure on home oxygen therapy at 3 liters via nasal canula which he uses 24 hours a day. Complaining of increasing shortness of breath. No cough or expectoration. No fever or chills or hemoptysis. Upon presentation to the hospital his oxygen saturation was 80% on oxygen therapy. His shortness of breath has improved, however, remains with significant exertional dyspnea. He does have history of sleep disorder breathing for which he had had a sleep study recently. The results of which are not available at this point. He does snore loudly ____. He is tired and sleepy in the daytime. PAST MEDICAL HISTORY His past medical history is that of diabetes mellitus, hypertension, COPD, congestive heart failure, question obstructive sleep apnea. He did have hernia repair in the past. Tongue tumor removed. SOCIAL HISTORY Long smoking history, however stopped 30 years ago. Does not drink any alcohol. Does not use drugs. FAMILY HISTORY Noncontributory. MEDICATIONS AT HOME Include: 1. Metformin. 2. Atorvastatin. 3. Terazosin. 4. Symbicort b.i.d. 5. Albuterol and DuoNeb p.r.n. via nebulizer. 6. HCTZ. ALLERGIES None known to medication. REVIEW OF SYSTEMS 12-point review of systems as per HPI and past history, otherwise, negative. PHYSICAL EXAMINATION GENERAL: On exam the patient is alert, obese. He is in no acute distress at present. VITAL SIGNS: On exam his temperature is 98 degrees Fahrenheit, pulse 80, respirations 18, blood pressure 117/60, oxygen saturation 95% on 50% inspired oxygen fraction. HEENT: Exam unremarkable. Eyes without icterus. NECK: Without adenopathy, thyroid enlargement. Trachea central. CHEST: Without dullness to percussion. Scattered rhonchi on auscultation. CARDIAC: On exam PMI not appreciated. S1-S2 audible. No murmur or rub. ABDOMEN: Obese, lax, bowel sounds audible. EXTREMITIES: Trace edema. LABORATORY DATA White count 5.1, hemoglobin 9.5, hematocrit 28, sodium 140, potassium 4.1, BUN 15, creatinine 0.8. Arterial blood gas 02/01/2017 pH 742, pCO2 65, pO2 of 43 on nasal cannula [address] angiogram without pulmonary embolization. Pleural based scarring, minimal atelectatic change. IMPRESSION 1. COPD exacerbation. 2. Sleep disorder, breathing obstructive sleep apnea suspect. 3. CHF. 4. Diabetes mellitus. 5. Hypertension. PLAN The patient will be maintained on oxygen therapy as needed. Bronchodilator therapy. Antibiotic therapy have been initiated and appropriately so. Steroid therapy has been given as well. We will follow his course along with you. ___ results of his previous polysomnographic evaluation depending on findings and his progress will proceed further. I do thank you for asking me to partake in Mr. Vang's care. Chuck Woods MD WWW/ZAIN /4:10 PM /5:58 PM
[2017-02-02] MEDS: INSULIN DETEMIR 100 UNITS/ML VIAL SQ SCH (22:13)
[2017-02-03] VITALS (32 sets, daily range): BP systolic 124–138; BP diastolic 56–81; PULSE 64–114; RESP 16–20; TEMP 97.8–98.8; O2SAT 86–98
[2017-02-03] MEDS: methylPREDNISolone SOD SUCC 125 MG/2 ML VIAL IVP SCH ×4 (01:44→17:27)
[2017-02-03] MEDS: HEPARIN SODIUM - SQ 10,000 UNITS/ML VIAL SQ SCH ×3 (06:12→22:25)
[2017-02-03] MEDS: INSULIN ASPART SUPPLEMENTAL SCALE SQ SCH ×4 (06:19→22:31)
[2017-02-03] MEDS: RESP: ALBUTEROL 2.5 MG/IPRATROPIUM 0.5 MG NEB (SCH) NEB ×4 (08:05→20:14)
--- NOTE | 2017-02-03 08:30 | HHI.PR ---
Subjective Remarks ASSESSMENT: COPD EXACERBATION RESPIRATORY FAILURE PLAN: O2 NEEDED BRONCHODILATOR THERAPY INCREASE ACTIVITY CHECK NPSG RESULTS Objective Vital Signs Date Time Temp Pulse Resp B/P Pulse Ox O2 Delivery O2 Flow Rate FiO2 02/03/17 08:06 95 Venturi Mask 6.00 50 02/03/17 07:15 Venturi Mask 6.00 50 02/03/17 06:28 98.6 77 16 132/69 98 02/03/17 06:00 64 02/03/17 05:00 82 02/03/17 04:00 72 02/03/17 03:25 98 50 02/03/17 03:00 70 02/03/17 02:00 70 02/03/17 01:28 98.8 91 18 124/69 94 02/03/17 01:00 74 02/03/17 00:05 97 50 02/03/17 00:00 88 02/02/17 23:00 90 02/02/17 22:07 Venturi Mask 02/02/17 22:00 90 02/02/17 21:00 94 02/02/17 20:39 98.8 91 18 127/66 96 02/02/17 20:00 84 02/02/17 19:00 100 02/02/17 16:00 98.1 94 18 120/63 94 02/02/17 16:00 88 02/02/17 15:24 95 Venturi Mask 6.00 50 02/02/17 15:00 106 02/02/17 14:00 92 02/02/17 13:00 98 02/02/17 12:00 80 02/02/17 12:00 98.2 86 20 117/58 94 02/02/17 11:00 86 02/02/17 10:00 84 02/02/17 09:00 102 I/O 02/02/17 02/02/17 02/02/17 02/03/17 02/03/17 02/03/17 07:00 15:00 23:00 07:00 15:00 23:00 Intake Total 240 ml 510 ml 820 ml Output Total 1100 ml 750 ml 300 ml Balance -860 ml -240 ml 520 ml Intake Oral 240 ml 510 ml 820 ml Output Urine Total 1100 ml 750 ml 300 ml Stool Total 0 ml # Voids 1 # Bowel Movements 0 0 Result Diagram: 02/01/1781202/03/17 0256 Chuck Woods MD Feb 03, 2017 08:30
[2017-02-03] MEDS: ATORVASTATIN 10 MG TAB PO SCH (08:41)
[2017-02-03] MEDS: SODIUM CHLORIDE 0.9% FLUSH 10 ML FLUSH IVF PRN (08:41)
[2017-02-03] MEDS: HYDROCHLOROTHIAZIDE 12.5 MG CAP PO SCH (08:41)
[2017-02-03] MEDS: TERAZOSIN HCL 5 MG CAP PO SCH (08:41)
[2017-02-03] MEDS: BUDESONIDE-FORMOTEROL 160/4.5 MCG INHALER INH SCH ×2 (08:41→22:25)
[2017-02-03] MEDS: ASPIRIN EC 81 MG TABEC PO SCH (08:41)
--- NOTE | 2017-02-03 10:39 | HHI.PR ---
Subjective Remarks Follow-up for respiratory failure with hypercapnia and hypoxia. Patient is currently doing well. He remains asymptomatic even when his oxygen saturation is in the lower 80s. Denies any chest pain, shortness of breath, fever or chills. Tolerating diet well. Objective Vitals Vital Signs Date Time Temp Pulse Resp B/P Pulse Ox O2 Delivery O2 Flow Rate FiO2 02/03/17 08:30 86 Venturi Mask 6.00 40 02/03/17 08:06 95 Venturi Mask 6.00 50 02/03/17 08:00 97.8 83 20 136/76 93 02/03/17 08:00 76 02/03/17 07:15 Venturi Mask 6.00 50 02/03/17 06:28 98.6 77 16 132/69 98 02/03/17 06:00 64 02/03/17 05:00 82 02/03/17 04:00 72 02/03/17 03:25 98 50 02/03/17 03:00 70 02/03/17 02:00 70 02/03/17 01:28 98.8 91 18 124/69 94 02/03/17 01:00 74 02/03/17 00:05 97 50 02/03/17 00:00 88 02/02/17 23:00 90 02/02/17 22:07 Venturi Mask 02/02/17 22:00 90 02/02/17 21:00 94 02/02/17 20:39 98.8 91 18 127/66 96 02/02/17 20:00 84 02/02/17 19:00 100 02/02/17 16:00 98.1 94 18 120/63 94 02/02/17 16:00 88 02/02/17 15:24 95 Venturi Mask 6.00 50 02/02/17 15:00 106 02/02/17 14:00 92 02/02/17 13:00 98 02/02/17 12:00 80 02/02/17 12:00 98.2 86 20 117/58 94 02/02/17 11:00 86 I/O 02/02/17 02/02/17 02/02/17 02/03/17 02/03/17 02/03/17 07:00 15:00 23:00 07:00 15:00 23:00 Intake Total 240 ml 510 ml 820 ml Output Total 1100 ml 750 ml 300 ml Balance -860 ml -240 ml 520 ml Intake Oral 240 ml 510 ml 820 ml Output Urine Total 1100 ml 750 ml 300 ml Stool Total 0 ml # Voids 1 # Bowel Movements 0 0 Result Diagram: 02/01/17 0813 02/03/17 [address] Angiography 02/01/17 0000 Signed Impressions: Service Date/Time: Wednesday, February 01, 2017 02:05 - CONCLUSION: No pulmonary arterial defects are identified. No evidence of pulmonary embolism. Stable areas of pleural-based scarring and minimal atelectasis bilaterally . Colby Britton MD Chest X-Ray 01/31/17 1852 Signed Impressions: Service Date/Time: Tuesday, January 31, 2017 19:08 - CONCLUSION: Bibasilar consolidation and a small left pleural effusion. Raymon Meraz MD Objective Remarks GENERAL: AOX3, NAD. SKIN: Warm and dry. HEAD: Normocephalic. EYES: No scleral icterus. No injection or drainage. NECK: Supple, trachea midline. No JVD or lymphadenopathy. CARDIOVASCULAR: Regular rate and rhythm without murmurs, gallops, or rubs. RESPIRATORY: Moderate air entry. No wheezing or crackles noted. GASTROINTESTINAL: Abdomen soft, non-tender, nondistended. MUSCULOSKELETAL: No cyanosis, or edema. BACK: Nontender without obvious deformity. No CVA tenderness. Procedures None. A/P Problem List: (1) Acute respiratory failure with hypoxia and hypercapnia ICD Code: J96.01 Status: Acute (2) COPD exacerbation ICD Code: J44.1 Status: Acute (3) Diabetes mellitus ICD Code: E11.9 Status: Chronic Assessment and Plan Mr. Vang is a 81 year old male with history of CHF, HTN, COPD, Diabetes presented to the ED on 01/31/2017 for evaluation of worsening shortness of breath that started 3-4 days prior to this admission. On the morning of admission, his O2 sat was 50%. On admission, his ABG was 7.32/89/96 on room air. His pCO2 improved to 65 with BiPAP. However, patient continued to require higher than his usual amount of O2 via nasal cannula. CXR showed bibasilar consolidation and CTA did not show any PE. - Acute respiratory failure with hypercarbia and hypoxia. - Patient uses 3-4 L of O2 at home. - Currently requiring over 6L of O2 via NC. - Hypercarbia improved with BiPAP. - Continue scheduled DuoNeb, Symbicort. - Continue Levaquin 750mg Qday as well as Solu-medrol 60mg IV Q6hrs. - Continue effort to wean down O2 requirements to maintain O2 sat > 85%. Discussed with RT as well as RN. - Start incentive spirometry. - If O2 requirement comes down, we can potentially discharge patient to SNF. - Pulmonary following. - Diabetes mellitus - Continue Levemir 5 units QHS and Sliding scale insulin. - Hyperlipidemia - Continue Lipitor 10mg QHS. - Hypertension - Continue HCTZ 12.5mg Qday. Full code. Heparin SQ Judy Rashid DO Feb 03, 2017 10:39 am
[2017-02-03] MEDS: LEVOFLOXACIN 750 MG TAB PO SCH (15:52)
[2017-02-03] MEDS ORDERED: INSULIN DETEMIR 100 UNITS/ML VIAL SQ SCH (21:00)
[2017-02-04] VITALS (11 sets, daily range): BP systolic 128–142; BP diastolic 70–80; PULSE 67–95; RESP 16–18; TEMP 98.1–98.4; O2SAT 90–97
[2017-02-04] MEDS: INSULIN ASPART SUPPLEMENTAL SCALE SQ SCH (06:19)
[2017-02-04] MEDS: methylPREDNISolone SOD SUCC 125 MG/2 ML VIAL IVP SCH ×3 (06:20→11:46)
[2017-02-04] MEDS: HEPARIN SODIUM - SQ 10,000 UNITS/ML VIAL SQ SCH (06:21)
[2017-02-04] MEDS: RESP: ALBUTEROL 2.5 MG/IPRATROPIUM 0.5 MG NEB (SCH) NEB ×2 (08:47→11:30)
[2017-02-04] MEDS: HYDROCHLOROTHIAZIDE 12.5 MG CAP PO SCH (09:12)
[2017-02-04] MEDS: TERAZOSIN HCL 5 MG CAP PO SCH (09:12)
[2017-02-04] MEDS: ATORVASTATIN 10 MG TAB PO SCH (09:12)
[2017-02-04] MEDS: BUDESONIDE-FORMOTEROL 160/4.5 MCG INHALER INH SCH (09:13)
[2017-02-04] MEDS: ASPIRIN EC 81 MG TABEC PO SCH (09:13)
[2017-02-04] MEDS ORDERED: PRED20 PO (09:35)
[2017-02-04] MEDS ORDERED: LEVA750T9 PO (09:35)
--- NOTE | 2017-02-04 09:37 | HHI.DS ---
Discharge Summary Admission Date Jan 31, 2017 at 9:06 pm Discharge Date: Feb 04, 2017 Admitting Diagnosis HYPOXIA;; COPD EXACERBATION; BIBASILAR CONSOLIDATION (1) Acute respiratory failure with hypoxia and hypercapnia ICD Code: J96.01 Diagnosis: Principal (2) COPD exacerbation ICD Code: J44.1 Diagnosis: Principal (3) Diabetes mellitus ICD Code: E11.9 Procedures None. Brief History - From Admission 81 years old male with history of hypertension COPD CHF diabetes mellitus presented to the ED with worsening short of breath and hypoxia, patient stated this has been going on for the last 3-4 days, but today it was extremely worst his oxygenation was checked at home was 50% he is usually on 3 L nasal cannula. A vacuum ports O2 was 80% when they arrived to the house. Patient denied fever or chills, he complained of pain across this chest which was intermittent , dull in nature. The pain has relatively resolved by the time of the encounter , patient denied nausea or vomiting, abdominal pain. Patient was started on nonrebreather 100% O2 mask, and gradually decreased to 50 % Ventimask, patient stabilized he is awake alert CBC/BMP: 02/01/17 0813 02/03/17 0256 Significant Findings Laboratory Tests Test 02/03/17 02:56 Estimat Glomerular Filtration 72 ML/MIN (>89) Rate Imaging Last Impressions CT Angiography 02/01/17 0000 Signed Impressions: Service Date/Time: Wednesday, February 01, 2017 02:05 - CONCLUSION: No pulmonary arterial defects are identified. No evidence of pulmonary embolism. Stable areas of pleural-based scarring and minimal atelectasis bilaterally . Colby Britton MD Chest X-Ray 01/31/17 [id number] Signed Impressions: Service Date/Time: Tuesday, January 31, 2017 19:08 - CONCLUSION: Bibasilar consolidation and a small left pleural effusion. Raymon Meraz MD PE at Discharge GENERAL: AOX3, NAD. SKIN: Warm and dry. HEAD: Normocephalic. EYES: No scleral icterus. No injection or drainage. NECK: Supple, trachea midline. No JVD or lymphadenopathy. CARDIOVASCULAR: Regular rate and rhythm without murmurs, gallops, or rubs. RESPIRATORY: Moderate air entry. No wheezing or crackles noted. GASTROINTESTINAL: Abdomen soft, non-tender, nondistended. MUSCULOSKELETAL: No cyanosis, or edema. BACK: Nontender without obvious deformity. No CVA tenderness. Pt update on day of discharge Patient is doing well. He is only requiring 3 L of O2 and saturating around 93- 94%. No fever, chills. Tolerating diet well. Hospital Course Mr. Vang is a 81 year old male with history of CHF, HTN, COPD, Diabetes presented to the ED on 01/31/2017 for evaluation of worsening shortness of breath that started 3-4 days prior to this admission. On the morning of admission, his O2 sat was 50%. On admission, his ABG was 7.32/89/96 on room air. His pCO2 improved to 65 with BiPAP. However, patient continued to require higher than his usual amount of O2 via nasal cannula. CXR showed bibasilar consolidation and CTA did not show any PE. - Acute respiratory failure with hypercarbia and hypoxia. - Patient uses 3-4 L of O2 at home. - Currently requiring 3L and Saturating over 93%. - Hypercarbia improved with BiPAP. - Continue scheduled DuoNeb, Symbicort. - Continue Levaquin 750mg Qday as well as Solu-medrol 60mg IV Q6hrs. Switched steroid to Prednisone PO on discharge. - Continue effort to wean down O2 requirements to maintain O2 sat > 85%. Discussed with RT as well as RN. - Continue incentive spirometry. - PT recommends home. We will arrange home with home health. - Pulmonary following. - Diabetes mellitus - While in the hospital, continued Levemir 5 units QHS and Sliding scale insulin. Continue metformin on discharge. - Hyperlipidemia - Continue Lipitor 10mg QHS. - Hypertension - Continue HCTZ 12.5mg Qday. Full code. Heparin SQ Pt Condition on Discharge: Good Discharge Disposition: Disch w/ Home Health Serv Discharge Time: > 30 minutes Discharge Instructions DIET: Follow Instructions for: Heart Healthy Diet, Diabetic Diet Activities you can perform: Regular-No Restrictions Follow up Referrals: PCP Follow-up - 1 Week Pulmonology - 1 Week New Medications: Prednisone (Prednisone) 20 Mg Tab 20 MG PO BID Inflammation #10 Ref 0 TAB Levofloxacin (Levaquin) 750 Mg Tablet 750 MG PO Q24H Infection #4 TAB Continued Medications: Aspirin DR (Aspirin EC) 81 Mg Tabdr 81 MG PO DAILY Ref 0 TAB Atorvastatin (Atorvastatin) 10 Mg Tab 10 MG PO DAILY Cholesterol Management #30 Ref 0 TAB Budesonide-Formoterol Inh (Symbicort Inh) 160-4.5 Mcg/Act Aero 2 PUFF INH Q12HR #1 Ref 0 INHALER Docusate Sodium (Docusate Sodium) 100 Mg Cap 100 MG PO BID Prevent Constipation #60 Ref 0 CAP Hydrochlorothiazide (Hydrochlorothiazide) 12.5 Mg Tab 12.5 MG PO DAILY #30 Ref 0 TAB Ipratropium-Albuterol Neb (Duoneb) 0.5-2.5 Mg/3 Ml Neb 1 NEBULE INH Q8HR NEB PRN SHORTNESS OF BREATH #90 Ref 0 NEBULE Metformin (Metformin) 500 Mg Tab 500 MG PO BIDPC With meals Blood Sugar Management #60 Ref 0 TAB Terazosin (Terazosin) 10 Mg Cap 10 MG PO DAILY #30 Ref 0 CAP Judy Rashid DO Feb 04, 2017 09:37
--- NOTE | 2017-02-04 09:57 | HHI.FF ---
Face to Face Verification Diagnosis: (1) Acute respiratory failure with hypoxia and hypercapnia (2) COPD exacerbation (3) Diabetes mellitus Physical Therapy Order: Evaluate and Treat, Improve ambulation, Strength and gait training Home Health Nursing Order: Medical education Signs/symptoms of disease process Diabetic education Oxygen administration education Nursing assessment with vital signs I have seen patient Bam Vang on 02/04/17. My clinical findings support the need for the requested home health care services because: Ltd mobility - disease progression Patient has SOB Limited ability to care for self Need for psychosocial assistance High risk of falls Infection w/ risk of complications I certify that my clinical findings support that this patient is homebound because: Unsteady gait/balance Unsafe to leave home unassisted Need for psychosocial assistance Unable to use public transportation Judy Rashid DO Feb 04, 2017 9:57 am
== END 2017-02-04 12:19 | disposition home health service (06) | DRG 189 ==
LOC: NEPE 18:21 → NEDA 21:06 → HCIS 02-01 02:25
PROVIDERS: ADMIT Hospitalist; ATTEND Hospitalist
DX: J96.21 Acute and chronic respiratory failure with hypoxia (principal); J18.9 Pneumonia, unspecified organism; I11.0 Hypertensive heart disease with heart failure; E11.9 Type 2 diabetes mellitus without complications; I50.9 Heart failure, unspecified; J44.0 Chronic obstructive pulmonary disease with (acute) lower respiratory infection; Z99.81 Dependence on supplemental oxygen; J44.1 Chronic obstructive pulmonary disease with (acute) exacerbation; J96.22 Acute and chronic respiratory failure with hypercapnia; E78.5 Hyperlipidemia, unspecified; G47.33 Obstructive sleep apnea (adult) (pediatric); Z79.4 Long term (current) use of insulin; Z87.891 Personal history of nicotine dependence; E66.9 Obesity, unspecified; Z68.34 Body mass index [BMI] 34.0-34.9, adult
CPT/HCPCS: 36600; 71010; 71275; 80048; 81001; 82550; 82565; 82805; 82948; 83880; 84484; 85025; 85610; 85730; 87040; 87149; 87186; 87205; 87804; 93005; 94002; 94003; 94150; 94640; 94664; 96374; J0456; J1644; J1815; J1940; J1956; J2930; J3370; J7050; Q9967